=== PATIENT | male | born 1960 | race Caucasian/White ===

== ENCOUNTER 2021-09-01 23:10 | Emergency (ER) | payer BC, MEDICAID, OTHER ==
[2021-09-01] MEDS ORDERED: Oxymetazoline 0.05% Nasal Spray 30 ML Bottle ONE (23:27)
[2021-09-01] MEDS ORDERED: Oxymetazoline 0.05% Nasal Spray 30 ML Bottle NAS ONE (23:29)
== END 2021-09-02 00:40 | disposition home or self-care (01) ==
LOC: JD.ED 23:10
DX: R04.0 Epistaxis (principal); Z88.5 Allergy status to narcotic agent; Z72.0 Tobacco use
CPT/HCPCS: 30903; 36415; 85025; 85610; 85730; 99284; A9270; 99283

== ENCOUNTER 2021-09-02 15:10 | Emergency (ER) | payer MEDICAID ==
[2021-09-02] MEDS ORDERED: Acetaminophen 325 MG Tab PO ONE (16:09)
== END 2021-09-02 16:28 | disposition home or self-care (01) ==
LOC: JD.ED 15:10
DX: R04.0 Epistaxis (principal); I10 Essential (primary) hypertension; Z88.5 Allergy status to narcotic agent
CPT/HCPCS: 99283; A9270

== ENCOUNTER 2021-09-02 22:21 | Emergency (ER) | payer MEDICAID ==
[2021-09-02] MEDS ORDERED: Oxymetazoline 0.05% Nasal Spray 30 ML Bottle NAS ONE (22:59)
[2021-09-03] MEDS ORDERED: Sodium Chloride 0.9% 1,000 ML IV ONE ×2 (01:55→01:57)
== END 2021-09-03 03:42 | disposition home or self-care (01) ==
LOC: JD.ED 22:21
DX: R04.0 Epistaxis (principal); I10 Essential (primary) hypertension; E78.00 Pure hypercholesterolemia, unspecified; K21.9 Gastro-esophageal reflux disease without esophagitis; Z79.899 Other long term (current) drug therapy; Z88.8 Allergy status to other drugs, medicaments and biological substances; Z72.0 Tobacco use
CPT/HCPCS: 36415; 85014; 85018; 99283; J7030; A9270-GY

== ENCOUNTER 2021-09-04 07:43 | Emergency (ER) | payer MEDICAID ==
[2021-09-04] MEDS ORDERED: Sodium Chloride 0.9% 10 ML Syringe FLUSH PRN (07:49)
[2021-09-04] MEDS ORDERED: Sodium Chloride 0.9% 1,000 ML IV SCH (08:00)
[2021-09-04] MEDS ORDERED: Cephalexin 500 MG Cap PO SCH (14:30)
== END 2021-09-04 18:00 | disposition home or self-care (01) ==
LOC: JD.ED 07:43
DX: R04.0 Epistaxis (principal); E78.00 Pure hypercholesterolemia, unspecified; I10 Essential (primary) hypertension; K21.9 Gastro-esophageal reflux disease without esophagitis; N40.0 Benign prostatic hyperplasia without lower urinary tract symptoms; Z72.0 Tobacco use; Z88.5 Allergy status to narcotic agent
CPT/HCPCS: 30903; 36415; 80053; 85025; 85610; 85730; 99282; 99283-25; A9270-GY; J3490; J7030

== ENCOUNTER 2022-09-11 20:35 | Emergency (ER) | payer MEDICAID ==
[2022-09-11] MEDS ORDERED: Heparin Sodium 5,000 Units/ML Vial IVPUSH ONE (21:55)
[2022-09-11] MEDS ORDERED: Heparin Sodium/D5W 25,000 UNITS/500 ML BAG IV SCH (22:00)
[2022-09-11] MEDS ORDERED: Acetaminophen/oxyCODONE 325-5 MG Tab PO ONE (22:30)
[2022-09-11] MEDS ORDERED: LORazepam 0.5 MG Tab PO ONE (22:31)
== END 2022-09-11 23:14 ==
LOC: JD.ED 20:35
DX: I21.4 Non-ST elevation (NSTEMI) myocardial infarction (principal); I10 Essential (primary) hypertension; Z88.5 Allergy status to narcotic agent; Z72.0 Tobacco use
CPT/HCPCS: 36415; 71045; 80053; 84484; 85025; 93005; 96365; 99285; A9270; J1644; 93010

== ENCOUNTER 2022-09-19 10:11 | Emergency (ER) | payer MEDICAID ==
[2022-09-19] MEDS ORDERED: Sodium Chloride 0.9% 10 ML Syringe FLUSH PRN (10:45)
== END 2022-09-19 16:08 | disposition home or self-care (01) ==
LOC: JD.ED 10:11
DX: R06.02 Shortness of breath (principal); I10 Essential (primary) hypertension; Z88.5 Allergy status to narcotic agent
CPT/HCPCS: 36415; 71045; 71045-26; 80053; 83880; 84484; 85025; 85379; 93005; 99285

== ENCOUNTER 2023-03-18 11:43 | Emergency (ER) | payer MEDICAID ==
[2023-03-18] MEDS ORDERED: Oxymetazoline 0.05% Nasal Spray 30 ML Bottle NAS ONE (12:34)
[2023-03-18 12:56] LABS: BASOPHILS ABSOLUTE AUTO 0.1 K/mm3 (0.0-0.2); BASOPHILS PERCENT AUTO 0.6 % (0.0-1.0); EOSINOPHILS ABSOLUTE AUTO 0.2 K/mm3 (0.0-0.4); EOSINOPHILS PERCENT AUTO 2.2 % (0.0-6.0); HEMATOCRIT 45.3 % (42.0-52.0); HEMOGLOBIN 14.9 gm/dl (14.0-18.0); IMMATURE GRAN ABSOLUTE AUTO 0.04 K/mm3 (0.00-0.05); IMMATURE GRAN PERCENT AUTO 0.4 % (0.0-0.4); LYMPHOCYTES PERCENT AUTO 18.6 % (24.0-44.0); MEAN CORPUSCULAR HEMOGLOBIN 30.2 pg (28.0-32.0); MEAN CORPUSCULAR HGB CONC 32.9 g/dl (32.0-36.0); MEAN CORPUSCULAR VOLUME 91.7 fl (83.0-99.0); MEAN PLATELET VOLUME 10.3 fl (9.4-12.4); MONOCYTES ABSOLUTE AUTO 0.7 K/mm3 (0.0-0.8); MONOCYTES PERCENT AUTO 6.6 % (0.0-8.0); NEUTROPHILS ABSOLUTE AUTO 7.7 K/mm3 (1.8-7.7); NEUTROPHILS PERCENT AUTO 71.6 % (41.0-71.0); PLATELET COUNT,PLT 187 K/mm3 (150-400); RED BLOOD CELL COUNT 4.94 M/mm3 (4.52-5.90); WHITE BLOOD CELL COUNT,WBC 10.72 K/mm3 (3.9-11.3)
[2023-03-18 13:10] LABS: INR 0.97; PROTHROMBIN TIME 10.4 SECONDS (9.7-12.0)
[2023-03-18 13:12] LABS: PTT,PARTIAL THROMBOPLSTIN TIME 30.9 SECONDS (21.7-31.4)
[2023-03-18 13:15] LABS: A/G RATIO 1.1 (1-2); ALBUMIN 3.7 g/dl (3.4-5.0); ANION GAP 12.6 (5-15); BILIRUBIN TOTAL 0.6 mg/dL (0.2-1.0); BUN/CREATININE RATIO 16.2 (14-18); CALCIUM 9.1 mg/dL (8.5-10.1); CREATININE 1.3 mg/dL (0.7-1.3); EST CRCL DRUG DOSING (CG) 60.05 mL/min; POTASSIUM,K 3.6 mEq/L (3.5-5.1); PROTEIN TOTAL,TP 7.2 g/dl (6.4-8.2)
== END 2023-03-18 14:48 | disposition home or self-care (01) ==
LOC: JD.ED 11:43
DX: R04.0 Epistaxis (principal); I10 Essential (primary) hypertension; K21.9 Gastro-esophageal reflux disease without esophagitis; F17.210 Nicotine dependence, cigarettes, uncomplicated; Z88.5 Allergy status to narcotic agent; Z79.899 Other long term (current) drug therapy
CPT/HCPCS: 30901; 36415; 80053; 85025; 85610; 85730; 99283; A9270

== ENCOUNTER 2023-03-22 12:20 | Emergency (ER) | payer MEDICAID, OTHER ==
[2023-03-22] MEDS ORDERED: Oxymetazoline 0.05% Nasal Spray 30 ML Bottle NAS ONE (14:24)
[2023-03-22] MEDS ORDERED: Amoxicillin/Clavulanate K 875-125 MG Tab PO ONE (16:15)
== END 2023-03-22 16:45 | disposition home or self-care (01) ==
LOC: JD.ED 12:20
DX: R04.0 Epistaxis (principal); I10 Essential (primary) hypertension; E78.00 Pure hypercholesterolemia, unspecified; K21.9 Gastro-esophageal reflux disease without esophagitis; Z88.5 Allergy status to narcotic agent
CPT/HCPCS: 30905; 99283; A9270; 30901

== ENCOUNTER 2023-03-23 05:47 | Emergency (ER) | payer MEDICAID ==
[2023-03-23 06:29] LABS: BASOPHILS ABSOLUTE AUTO 0.1 K/mm3 (0.0-0.2); BASOPHILS PERCENT AUTO 0.5 % (0.0-1.0); EOSINOPHILS ABSOLUTE AUTO 0.2 K/mm3 (0.0-0.4); EOSINOPHILS PERCENT AUTO 1.4 % (0.0-6.0); IMMATURE GRAN ABSOLUTE AUTO 0.08 K/mm3 (0.00-0.05); IMMATURE GRAN PERCENT AUTO 0.6 % (0.0-0.4); LYMPHOCYTES ABSOLUTE AUTO 2.8 K/mm3 (1.0-4.8); MEAN CORPUSCULAR HEMOGLOBIN 30.2 pg (28.0-32.0); MEAN CORPUSCULAR HGB CONC 32.5 g/dl (32.0-36.0); MEAN CORPUSCULAR VOLUME 92.8 fl (83.0-99.0); MEAN PLATELET VOLUME 10.7 fl (9.4-12.4); MONOCYTES ABSOLUTE AUTO 0.8 K/mm3 (0.0-0.8); MONOCYTES PERCENT AUTO 5.7 % (0.0-8.0); NEUTROPHILS ABSOLUTE AUTO 9.4 K/mm3 (1.8-7.7); NEUTROPHILS PERCENT AUTO 70.8 % (41.0-71.0); PLATELET COUNT,PLT 198 K/mm3 (150-400); RED BLOOD CELL COUNT 3.88 M/mm3 (4.52-5.90); WHITE BLOOD CELL COUNT,WBC 13.24 K/mm3 (3.9-11.3)
[2023-03-23 06:39] LABS: HEMOGLOBIN 11.7 gm/dl (14.0-18.0)
[2023-03-23 06:58] LABS: INR 1.05; PROTHROMBIN TIME 11.2 SECONDS (9.7-12.0)
[2023-03-23 06:59] LABS: PTT,PARTIAL THROMBOPLSTIN TIME 28.8 SECONDS (21.7-31.4)
[2023-03-23] MEDS ORDERED: Tranexamic Acid 1,000 MG/10 ML Vial ONE (08:31)
== END 2023-03-23 10:35 | disposition home or self-care (01) ==
LOC: JD.ED 05:47
DX: R04.0 Epistaxis (principal); Z88.5 Allergy status to narcotic agent; Z79.899 Other long term (current) drug therapy; I10 Essential (primary) hypertension; F17.210 Nicotine dependence, cigarettes, uncomplicated
CPT/HCPCS: 30903; 36415; 85025; 85610; 85730; 99283; J3490

== ENCOUNTER 2023-10-19 08:33 | Emergency (ER) | payer MEDICAID ==
[2023-10-19] MEDS: Tranexamic Acid 1,000 MG/10 ML Vial ONE (09:30)
[2023-10-19 09:55] LABS: BASOPHILS ABSOLUTE AUTO 0.1 K/mm3 (0.0-0.2); BASOPHILS PERCENT AUTO 0.4 % (0.0-1.0); EOSINOPHILS ABSOLUTE AUTO 0.3 K/mm3 (0.0-0.4); EOSINOPHILS PERCENT AUTO 2.2 % (0.0-6.0); HEMATOCRIT 36.4 % (42.0-52.0); HEMOGLOBIN 12.2 gm/dl (14.0-18.0); IMMATURE GRAN ABSOLUTE AUTO 0.13 K/mm3 (0.00-0.05); LYMPHOCYTES PERCENT AUTO 22.5 % (24.0-44.0); MEAN CORPUSCULAR HEMOGLOBIN 31.4 pg (28.0-32.0); MEAN CORPUSCULAR HGB CONC 33.5 g/dl (32.0-36.0); MEAN CORPUSCULAR VOLUME 93.8 fl (83.0-99.0); MONOCYTES ABSOLUTE AUTO 0.8 K/mm3 (0.0-0.8); MONOCYTES PERCENT AUTO 6.3 % (0.0-8.0); NEUTROPHILS ABSOLUTE AUTO 9.1 K/mm3 (1.8-7.7); NEUTROPHILS PERCENT AUTO 67.6 % (41.0-71.0); PLATELET COUNT,PLT 181 K/mm3 (150-400); RED BLOOD CELL COUNT 3.88 M/mm3 (4.52-5.90); WHITE BLOOD CELL COUNT,WBC 13.44 K/mm3 (3.9-11.3)
== END 2023-10-19 11:30 | disposition home or self-care (01) ==
LOC: JD.ED 08:33
DX: R04.0 Epistaxis (principal); I10 Essential (primary) hypertension; E78.00 Pure hypercholesterolemia, unspecified; K21.9 Gastro-esophageal reflux disease without esophagitis; Z79.899 Other long term (current) drug therapy; Z79.82 Long term (current) use of aspirin; Z88.5 Allergy status to narcotic agent
CPT/HCPCS: 30905; 36415; 85025; 99283; 99283-25; J3490

== ENCOUNTER 2023-10-22 09:20 | Emergency (ER) | payer MEDICAID | END 2023-10-22 10:25 | disposition home or self-care (01) | LOC: JD.ED 09:20 | DX: Z48.00 Encounter for change or removal of nonsurgical wound dressing (principal); E78.00 Pure hypercholesterolemia, unspecified; I10 Essential (primary) hypertension; K21.9 Gastro-esophageal reflux disease without esophagitis; G62.9 Polyneuropathy, unspecified; F17.210 Nicotine dependence, cigarettes, uncomplicated; Z88.5 Allergy status to narcotic agent; Z79.82 Long term (current) use of aspirin; Z79.899 Other long term (current) drug therapy | CPT/HCPCS: 99282 ==

== ENCOUNTER 2023-10-28 06:20 | Emergency (ER) | payer MEDICAID ==
[2023-10-28 07:25] LABS: BASOPHILS ABSOLUTE AUTO 0.1 K/mm3 (0.0-0.2); BASOPHILS PERCENT AUTO 0.7 % (0.0-1.0); EOSINOPHILS ABSOLUTE AUTO 0.3 K/mm3 (0.0-0.4); EOSINOPHILS PERCENT AUTO 3.7 % (0.0-6.0); HEMATOCRIT 33.8 % (42.0-52.0); HEMOGLOBIN 10.9 gm/dl (14.0-18.0); IMMATURE GRAN ABSOLUTE AUTO 0.05 K/mm3 (0.00-0.05); IMMATURE GRAN PERCENT AUTO 0.6 % (0.0-0.4); LYMPHOCYTES ABSOLUTE AUTO 2.6 K/mm3 (1.0-4.8); LYMPHOCYTES PERCENT AUTO 32.3 % (24.0-44.0); MEAN CORPUSCULAR HEMOGLOBIN 32.1 pg (28.0-32.0); MEAN CORPUSCULAR HGB CONC 32.2 g/dl (32.0-36.0); MEAN CORPUSCULAR VOLUME 99.4 fl (83.0-99.0); MEAN PLATELET VOLUME 10.8 fl (9.4-12.4); MONOCYTES ABSOLUTE AUTO 0.6 K/mm3 (0.0-0.8); MONOCYTES PERCENT AUTO 7.6 % (0.0-8.0); NEUTROPHILS ABSOLUTE AUTO 4.4 K/mm3 (1.8-7.7); NEUTROPHILS PERCENT AUTO 55.1 % (41.0-71.0); PLATELET COUNT,PLT 201 K/mm3 (150-400); WHITE BLOOD CELL COUNT,WBC 8.06 K/mm3 (3.9-11.3)
[2023-10-28 07:26] LABS: INR 0.96; PROTHROMBIN TIME 10.3 SECONDS (9.7-12.0)
[2023-10-28 07:27] LABS: PTT,PARTIAL THROMBOPLSTIN TIME 29.8 SECONDS (21.7-31.4)
[2023-10-28 07:28] LABS: A/G RATIO 1.2 (1-2); ALBUMIN 3.3 g/dl (3.4-5.0); ANION GAP 14.4 (5-15); BILIRUBIN TOTAL 0.3 mg/dL (0.2-1.0); BUN/CREATININE RATIO 15.8 (14-18); CALCIUM 8.2 mg/dL (8.5-10.1); CREATININE 1.2 mg/dL (0.7-1.3); EST CRCL DRUG DOSING (CG) 65.06 mL/min; POTASSIUM,K 3.4 mEq/L (3.5-5.1); PROTEIN TOTAL,TP 6.1 g/dl (6.4-8.2)
== END 2023-10-28 10:14 | disposition home or self-care (01) ==
LOC: JD.ED 06:20
DX: R04.0 Epistaxis (principal); I10 Essential (primary) hypertension; E78.00 Pure hypercholesterolemia, unspecified; K21.9 Gastro-esophageal reflux disease without esophagitis; F17.210 Nicotine dependence, cigarettes, uncomplicated; Z86.16 Personal history of COVID-19; Z79.82 Long term (current) use of aspirin; Z79.899 Other long term (current) drug therapy; Z88.5 Allergy status to narcotic agent
CPT/HCPCS: 30901; 36415; 80053; 85025; 85610; 85730; 99283; 99283-25

== ENCOUNTER 2023-11-03 12:24 | Emergency (ER) | payer MEDICAID ==
[2023-11-03] MEDS: Oxymetazoline 0.05% Nasal Spray 30 ML Bottle NAS ONE (12:56)
[2023-11-03 13:42] LABS: BASOPHILS ABSOLUTE AUTO 0.1 K/mm3 (0.0-0.2); BASOPHILS PERCENT AUTO 0.7 % (0.0-1.0); EOSINOPHILS ABSOLUTE AUTO 0.2 K/mm3 (0.0-0.4); EOSINOPHILS PERCENT AUTO 2.5 % (0.0-6.0); HEMATOCRIT 35.1 % (42.0-52.0); HEMOGLOBIN 11.1 gm/dl (14.0-18.0); IMMATURE GRAN ABSOLUTE AUTO 0.06 K/mm3 (0.00-0.05); IMMATURE GRAN PERCENT AUTO 0.7 % (0.0-0.4); LYMPHOCYTES ABSOLUTE AUTO 2.1 K/mm3 (1.0-4.8); LYMPHOCYTES PERCENT AUTO 25.6 % (24.0-44.0); MEAN CORPUSCULAR HEMOGLOBIN 32.1 pg (28.0-32.0); MEAN CORPUSCULAR HGB CONC 31.6 g/dl (32.0-36.0); MEAN CORPUSCULAR VOLUME 101.4 fl (83.0-99.0); MEAN PLATELET VOLUME 10.7 fl (9.4-12.4); MONOCYTES ABSOLUTE AUTO 0.6 K/mm3 (0.0-0.8); MONOCYTES PERCENT AUTO 6.9 % (0.0-8.0); NEUTROPHILS ABSOLUTE AUTO 5.1 K/mm3 (1.8-7.7); NEUTROPHILS PERCENT AUTO 63.6 % (41.0-71.0); PLATELET COUNT,PLT 197 K/mm3 (150-400); RED BLOOD CELL COUNT 3.46 M/mm3 (4.52-5.90); WHITE BLOOD CELL COUNT,WBC 8.09 K/mm3 (3.9-11.3)
[2023-11-03 13:56] LABS: INR 0.98; PROTHROMBIN TIME 10.5 SECONDS (9.7-12.0)
[2023-11-03 13:57] LABS: PTT,PARTIAL THROMBOPLSTIN TIME 30.3 SECONDS (21.7-31.4)
[2023-11-03 14:02] LABS: A/G RATIO 1.2 (1-2); ALBUMIN 3.7 g/dl (3.4-5.0); ANION GAP 13.7 (5-15); BILIRUBIN TOTAL 0.5 mg/dL (0.2-1.0); BUN/CREATININE RATIO 13.8 (14-18); CALCIUM 8.9 mg/dL (8.5-10.1); CREATININE 1.3 mg/dL (0.7-1.3); EST CRCL DRUG DOSING (CG) 60.05 mL/min; POTASSIUM,K 3.7 mEq/L (3.5-5.1); PROTEIN TOTAL,TP 6.7 g/dl (6.4-8.2)
== END 2023-11-03 13:57 | disposition home or self-care (01) ==
LOC: JD.ED 12:24
DX: R04.0 Epistaxis (principal); Q30.3 Congenital perforated nasal septum; E78.00 Pure hypercholesterolemia, unspecified; I10 Essential (primary) hypertension; K21.9 Gastro-esophageal reflux disease without esophagitis; F17.210 Nicotine dependence, cigarettes, uncomplicated; Z88.5 Allergy status to narcotic agent; Z79.899 Other long term (current) drug therapy; Z79.82 Long term (current) use of aspirin
CPT/HCPCS: 30901; 30903; 36415; 80053; 85025; 85610; 85730; 99283; 99283-25; A9270-GY